=== PATIENT | male | born 1970 | race Caucasian/White ===

== ENCOUNTER 2022-07-30 16:02 | Inpatient (IN) ==
[2022-07-30] MEDS ORDERED: PHARMACY CONSULT - VANCOMYCIN XX SCH (17:00)
[2022-07-30] MEDS: NS 1,000 ML IV 1,000 ML IV SCH (17:46)
[2022-07-30 18:00] VITALS: BMI 31.9
[2022-07-30] MEDS ORDERED: VANCOMYCIN IV *PREMIX 1.25 G/250 ML BAG 1.25 G/250 ML PIGGYBACK IV ONE (18:00)
[2022-07-30 18:04] LABS: EOSINOPHILS # (AUTO) 0.2 x10^3/uL (0.0-0.2); EOSINOPHILS % (AUTO) 1.6 % (0.9-2.9); MONOCYTES # (AUTO) 0.7 x10^3/uL (0.3-0.8)
[2022-07-30 18:09] LABS: BASOPHILS % (AUTO) 0.3 % (0.2-1.0); HEMATOCRIT 39.5 % (42.0-54.0); LYMPHOCYTES # (AUTO) 2.8 X10^3/uL (1.3-2.9); LYMPHOCYTES % (AUTO) 25.2 % (21.0-51.0); MEAN CORPUSCULAR HEMOGLOBIN 30.3 pg (27.0-34.0); MEAN CORPUSCULAR HGB CONC 35.4 g/dL (33.0-35.0); MEAN CORPUSCULAR VOLUME 85.5 fL (80.0-100.0); MEAN PLATELET VOLUME 9.3 fL (7.4-11.0); MONOCYTES % (AUTO) 6.3 % (0.0-13.0); NEUTROPHILS # (AUTO) 7.4 x10^3/uL (2.2-4.8); NEUTROPHILS % (AUTO) 66.6 % (42.0-75.0); RED BLOOD COUNT 4.62 X10^6/uL (4.7-6.0); RED CELL DISTRIBUTION WIDTH 12.7 % (11.6-16.5)
[2022-07-30 18:12] LABS: ALANINE AMINOTRANSFERASE 16 Units/L (12-78); ALBUMIN 2.9 g/dL (3.4-5.0); ALKALINE PHOSPHATASE 92 Units/L (46-116); ASPARTATE AMINO TRANSFERASE 12 Units/L (15-37); BLOOD UREA NITROGEN 11 mg/dL (7-18); CALCIUM 9.1 mg/dL (8.5-10.1); CARBON DIOXIDE 31.2 mmol/L (21-32); CHLORIDE 99 mmol/L (98-107); COR NA(FOR HYPERGLY) 140 mmol/L (136-145); CREATININE 0.89 mg/dL (0.70-1.30); SODIUM 139 mmol/L (136-145); TOTAL PROTEIN 8.4 g/dL (6.4-8.2); eGFR NON BLACK RACES > 60 (>60)
[2022-07-30] MEDS ORDERED: NovoLIN R (or HumuLIN R) SC PRN (18:48)
[2022-07-30] MEDS: NORCO 10/325 TAB PO PRN (20:39)
--- NOTE | 2022-07-30 22:06 | DR.H&P ---
H&P History & Physical for Day of: H&P Date: 07/30/22 Chief Complaint Chief Complaint: Right foot ulcer Allergies Allergies Allergy/AdvReac Type Severity Reaction Status Date / Time codeine Allergy Verified 07/30/22 17:00 History of Present Illness History of Present Illness: Pt is a 51 year old male past medical history of DDD, DMT2, Hypertension, directly admitted from clinic due diabetic ulcer of right foot and cellulitis. Pt has been followed by wound care in [facility] and failed outpatient treatment. He was recommended to be admitted to their hospital, however patient refused and wanted to be admitted to [facility]. Pt has been having wound drainage at site and culture was obtained at clinic. MRI ordered to rule out osteomyelitis of right foot. Labs: Wbc 11, Hgb 14, Plt 309, Na 139, K 3.5, Creatinine 0.89, Glucose 124, CRP 17. Wound cultures pending. Will restart home medications. Order IVF NS@75ml/h, antibiotics: IV Vancomycin, SSI. Will continue to closely monitor and follow up labs/imaging. Past Medical History Past Medical History: Diabetes and Hypertension Past Surgical History Surgical History: Cholecystectomy Social History Alcohol Use: None Drug Use: None Medications Home Medications: codeine Allergy (Verified 07/30/22 17:00) CONTINUE taking the following medications glipizide 10 mg tablet, extended release 24 hr 1 tab PO QDAY 07/30/22 [History] hydrocodone 10 mg-acetaminophen 325 mg tablet 1 tab PO TID PRN 07/30/22 [History] insulin degludec 100 unit/mL (3 mL) subcutaneous pen (Tresiba FlexTouch U-100 insulin) 20 unit subcut BID 07/30/22 [History] levofloxacin 750 mg tablet 1 tab PO QDAY 07/30/22 [History] lisinopril 20 mg tablet 1 tab PO QDAY 07/30/22 [History] sulfamethoxazole 800 mg-trimethoprim 160 mg tablet 1 tab PO BID 07/30/22 [History] Labs Result Diagrams: 07/30/22 17:30 07/30/22 17:30 Labs: Laboratory WBC 11.0 X10^3/uL (3.6-10.0) H 07/30/22 17:30 RBC 4.62 X10^6/uL (4.7-6.0) L 07/30/22 17:30 Hgb 14.0 g/dL (13.5-18.0) 07/30/22 17: Hct 39.5 % (42.0-54.0) L 07/30/22 17: MCV 85.5 fL (80.0-100.0) 07/30/22 17: MCH 30.3 pg (27.0-34.0) 07/30/22 17: MCHC 35.4 g/dL (33.0-35.0) H 07/30/22 17: RDW 12.7 % (11.6-16.5) 07/30/22: Plt Count 309 X10^3/uL (150.0-450.0) 07/30/22: MPV 9.3 fL (7.4-11.0) 07/30/22 17: Neut % (Auto) 66.6 % (42.0-75.0) 07/30/22: Lymph % (Auto) 25.2 % (21.0-51.0) 07/30/22 17:30 [place] % (Auto) 6.3 % (0.0-13.0) 07/30/22 17: Eos % (Auto) 1.6 % (0.9-2.9) 07/30/22: Baso % (Auto) 0.3 % (0.2-1.0) 07/30/22 17:30 Neut # (Auto) 7.4 x10^3/uL (2.2-4.8) H 07/30/22: Lymph # (Auto) 2.8 X10^3/uL (1.3-2.9) 07/30/22 17:30 [place] # (Auto) 0.7 x10^3/uL (0.3-0.8) 07/30/22: Eos # (Auto) 0.2 x10^3/uL (0.0-0.2) 07/30/22 17: Baso # (Auto) 0.0 X10^3/uL (0.0-0.1) 07/30/22: Absolute Nucleated RBC 0.0 /100WBC 07/30/22 17:30 Sodium 139 mmol/L (136-145) 07/30/22 17:30 Corrected Sodium 140 mmol/L (136-145) 07/30/22 17:30 Potassium 3.5 mmol/L (3.5-5.1) 07/30/22 17:30 Chloride 99 mmol/L (98-107) 07/30/22 17:30 Carbon Dioxide 31.2 mmol/L (21-32) 07/30/22 17:30 BUN 11 mg/dL (7-18) 07/30/22 17:30 Creatinine 0.89 mg/dL (0.70-1.30) 07/30/22 17:30 Est GFR (MDRD) Af Amer > 60 (>60) 07/30/22 17:30 Est GFR (MDRD) Non-Af > 60 (>60) 07/30/22 17:30 Glucose 124 mg/dL (65-99) H 07/30/22 17:30 POC Glucose (mg/dL) 149 mg/dL (65-99) H 07/30/22 19:35 Calcium 9.1 mg/dL (8.5-10.1) 07/30/22 17:30 Corrected Calcium 10.0 mg/dL (8.5-10.1) 07/30/22 17:30 Total Bilirubin 0.30 mg/dL (0.2-1.0) 07/30/22 17:30 AST 12 Units/L (15-37) L 07/30/22 17:30 ALT 16 Units/L (12-78) 07/30/22 17:30 Alkaline Phosphatase 92 Units/L (46-116) 07/30/22 17:30 C-Reactive Protein 17.30 mg/L (0-3.0) H 07/30/22 17:30 Total Protein 8.4 g/dL (6.4-8.2) H 07/30/22 17:30 Albumin 2.9 g/dL (3.4-5.0) L 07/30/22 17:30 Globulin 5.5 g/dL (2.5-4.5) H 07/30/22 17:30 Albumin/Globulin Ratio 0.5 Ratio (1.1-2.1) L 07/30/22 17:30 Review of Systems Constitutional: No Symptoms Reported Eyes: No Symptoms Reported ENT: No Symptoms Reported Respiratory: No Symptoms Reported Cardiovascular: No Symptoms Reported Gastrointestinal: No Symptoms Reported Genitourinary: No Symptoms Reported Musculoskeletal: No Symptoms Reported Skin: Wound (diabetic ulcer with surround cellulitis right foot) Neurological: No Symptoms Reported Physical Exam Vital Signs: Temperature 98.3 F Pulse Rate [Left Brachial] 79 Respiratory Rate 18 Blood Pressure [Left Arm] 125/74 O2 Sat by Pulse Oximetry 97 Oriented: Normal Eyes: Normal Ear: Normal Nose: Normal Throat: Normal Respiratory: Clear Throughout Cardiovascular: Normal : Normal Auscultation: Bowel Sounds: Normal Palpation: Normal Tenderness: Normal Skin: Red (right foot ) Musculoskeletal: Right and Foot (diabetic ulcer ) Psychiatric: Normal Mood Description: Calm and Appropriate Affect: Normal Speech Pattern: Clear and Appropriate Assessment/Plan (1) Diabetic ulcer of right foot: Narrative Support Text: IV Vancomycin Wound culture pending MRI pending Status: Acute (2) Cellulitis: Status: Acute Review H&P Reviewed: Yes Patient was examined?: Yes
[2022-07-31] MEDS: GLUCOTROL XL 24-HR PO SCH (06:04)
[2022-07-31] MEDS: NS 1,000 ML IV 1,000 ML IV SCH ×3 (06:04→21:28)
[2022-07-31 06:10] LABS: BASOPHILS # (AUTO) 0.1 X10^3/uL (0.0-0.1); BASOPHILS % (AUTO) 1.5 % (0.2-1.0); EOSINOPHILS # (AUTO) 0.2 x10^3/uL (0.0-0.2); EOSINOPHILS % (AUTO) 2.2 % (0.9-2.9); HEMATOCRIT 36.5 % (42.0-54.0); HEMOGLOBIN 12.8 g/dL (13.5-18.0); LYMPHOCYTES # (AUTO) 2.6 X10^3/uL (1.3-2.9); LYMPHOCYTES % (AUTO) 26.9 % (21.0-51.0); MEAN CORPUSCULAR HGB CONC 34.9 g/dL (33.0-35.0); MEAN CORPUSCULAR VOLUME 85.8 fL (80.0-100.0); MEAN PLATELET VOLUME 9.3 fL (7.4-11.0); MONOCYTES # (AUTO) 0.7 x10^3/uL (0.3-0.8); MONOCYTES % (AUTO) 7.5 % (0.0-13.0); NEUTROPHILS # (AUTO) 5.9 x10^3/uL (2.2-4.8); NEUTROPHILS % (AUTO) 61.9 % (42.0-75.0); RED BLOOD COUNT 4.26 X10^6/uL (4.7-6.0); RED CELL DISTRIBUTION WIDTH 12.9 % (11.6-16.5); WHITE BLOOD COUNT 9.5 X10^3/uL (3.6-10.0)
[2022-07-31 06:29] LABS: ALANINE AMINOTRANSFERASE 17 Units/L (12-78); ALBUMIN 2.5 g/dL (3.4-5.0); ALKALINE PHOSPHATASE 78 Units/L (46-116); ASPARTATE AMINO TRANSFERASE 12 Units/L (15-37); BLOOD UREA NITROGEN 11 mg/dL (7-18); CALCIUM 8.6 mg/dL (8.5-10.1); CARBON DIOXIDE 30.6 mmol/L (21-32); CHLORIDE 104 mmol/L (98-107); COR CA(FOR HYPOALB) 9.8 mg/dL (8.5-10.1); COR NA(FOR HYPERGLY) 141 mmol/L (136-145); CREATININE 0.97 mg/dL (0.70-1.30); SODIUM 141 mmol/L (136-145); TOTAL PROTEIN 7.4 g/dL (6.4-8.2); eGFR NON BLACK RACES > 60 (>60)
[2022-07-31] MEDS ORDERED: MICRO K EXTEN CAP 10 MEQ PO PRN (06:40)
[2022-07-31] MEDS ORDERED: KLOR-CON PO PRN (06:40)
[2022-07-31] MEDS ORDERED: POTASSIUM CHLORIDE LIQ 20 MEQ UDC PO PRN (06:40)
[2022-07-31] MEDS ORDERED: K-RIDER 10 MEQ/NS 100 ML 10 MEQ/100 ML BAG IV PRN (06:40)
[2022-07-31] MEDS ORDERED: ZESTRIL TAB 20 MG ONE (09:31)
[2022-07-31] MEDS: K-DUR TAB 20 MEQ PO PRN (09:41)
[2022-07-31] MEDS: VANCOMYCIN IV *PREMIX 1.25 G/250 ML BAG 1.25 G/250 ML PIGGYBACK IV SCH ×2 (09:41→21:26)
[2022-07-31] MEDS: ZESTRIL TAB 20 MG PO SCH (09:42)
[2022-07-31] MEDS: LANTUS SC SCH ×2 (09:43→22:00)
[2022-07-31] MEDS: MAGNESIUM SULFATE 1 GRAM/100 mL PREMIX 1 G/100 ML BAG IV PRN ×2 (12:23→13:35)
--- NOTE | 2022-07-31 15:14 | PCM.PROG ---
Progress Note Progress Note for Day of Date of Exam: 07/31/22 Subjective Subjective: Patient seen at bedside, no overnight events. He states he has been doing ok. He is admitted for worsening right foot ulcers (dorsal and plantar) surface. He was seeing a specialist at Wound care and due to recent worsening, was advised to be admitted for IV antibiotics and further evaluation. Patient reports having this diabetic ulcer for a long time. He states it recently started draining a lot. He was started on IV Vancomycin, MRI pending. Labs reviewed Wound Cs: Gram (-) rods and coag + staff Plan: Follow MRI results, continue IV Vanc, add IV Zosyn. Follow wound Cx. Dr De Jesus consulted for wound care. No surgical intervention needed at this time. Continue current home medications. Monitor AM labs/imaging. Past Medical Family Social History Allergies: Allergies codeine Allergy (Verified 07/30/22 17:00) Vital Signs and I&O's Vital Signs: Temperature 97.8 F Pulse Rate [Left Brachial] 68 Respiratory Rate 20 Blood Pressure [Left Arm] 120/73 O2 Sat by Pulse Oximetry 96 Intake and Output: Intake & Output 07/28/22 07/29/22 07/30/22 07/31/22 23:59 23:59 23:59 23:59 Intake Total 719 / 719 1615 / 1615 Balance 719 / 719 1615 / 1615 Physical Exam Oriented: Normal Eyes: Normal Ear: Normal Nose: Normal Throat: Normal Cardiovascular: Normal : Normal Auscultation: Bowel Sounds: Normal Tenderness: Normal Skin: Red (right foot ) Musculoskeletal: Right and Foot (diabetic ulcer with purulent drainage, on plantar and dorsal surface, surrounding erythema ) Psychiatric: Normal Mood Description: Calm and Appropriate Affect: Normal Speech Pattern: Clear and Appropriate Laboratory and Diagnostics Result Diagrams: 07/31/22 05:33 07/31/22 05:33 Labs: Laboratory WBC 9.5 X10^3/uL (3.6-10.0) 07/31/22 05:33 RBC 4.26 X10^6/uL (4.7-6.0) L 07/31/22 05:33 Hgb 12.8 g/dL (13.5-18.0) L 07/31/22 05:33 Hct 36.5 % (42.0-54.0) L 07/31/22 05:33 MCV 85.8 fL (80.0-100.0) 07/31/22 05:33 MCH 30.0 pg (27.0-34.0) 07/31/22 05:33 MCHC 34.9 g/dL (33.0-35.0) 07/31/22 05:33 RDW 12.9 % (11.6-16.5) 07/31/22 05:33 Plt Count 296 X10^3/uL (150.0-450.0) 07/31/22 05:33 MPV 9.3 fL (7.4-11.0) 07/31/22 05:33 Neut % (Auto) 61.9 % (42.0-75.0) 07/31/22 05:33 Lymph % (Auto) 26.9 % (21.0-51.0) 07/31/22 05:33 [place] % (Auto) 7.5 % (0.0-13.0) 07/31/22 05:33 Eos % (Auto) 2.2 % (0.9-2.9) 07/31/22 05:33 Baso % (Auto) 1.5 % (0.2-1.0) H 07/31/22 05:33 Neut # (Auto) 5.9 x10^3/uL (2.2-4.8) H 07/31/22 05:33 Lymph # (Auto) 2.6 X10^3/uL (1.3-2.9) 07/31/22 05:33 [place] # (Auto) 0.7 x10^3/uL (0.3-0.8) 07/31/22 05:33 Eos # (Auto) 0.2 x10^3/uL (0.0-0.2) 07/31/22 05:33 Baso # (Auto) 0.1 X10^3/uL (0.0-0.1) 07/31/22 05:33 Absolute Nucleated RBC 0.0 /100WBC 07/31/22 05:33 Sodium 141 mmol/L (136-145) 07/31/22 05:33 Corrected Sodium 141 mmol/L (136-145) 07/31/22 05:33 Potassium 3.4 mmol/L (3.5-5.1) L 07/31/22 05:33 Chloride 104 mmol/L (98-107) 07/31/22 05:33 Carbon Dioxide 30.6 mmol/L (21-32) 07/31/22 05:33 BUN 11 mg/dL (7-18) 07/31/22 05:33 Creatinine 0.97 mg/dL (0.70-1.30) 07/31/22 05:33 Est GFR (MDRD) Af Amer > 60 (>60) 07/31/22 05:33 Est GFR (MDRD) Non-Af > 60 (>60) 07/31/22 05:33 Glucose 118 mg/dL (65-99) H 07/31/22 05:33 POC Glucose (mg/dL) 77 mg/dL (65-99) 07/31/22 11:26 Calcium 8.6 mg/dL (8.5-10.1) 07/31/22 05:33 Corrected Calcium 9.8 mg/dL (8.5-10.1) 07/31/22 05:33 Magnesium 1.8 mg/dL (2.0-2.9) L 07/31/22 05:33 Total Bilirubin 0.30 mg/dL (0.2-1.0) 07/31/22 05:33 AST 12 Units/L (15-37) L 07/31/22 05:33 ALT 17 Units/L (12-78) 07/31/22 05:33 Alkaline Phosphatase 78 Units/L (46-116) 07/31/22 05:33 C-Reactive Protein 17.30 mg/L (0-3.0) H 07/30/22 17:30 Total Protein 7.4 g/dL (6.4-8.2) 07/31/22 05:33 Albumin 2.5 g/dL (3.4-5.0) L 07/31/22 05:33 Globulin 4.9 g/dL (2.5-4.5) H 07/31/22 05:33 Albumin/Globulin Ratio 0.5 Ratio (1.1-2.1) L 07/31/22 05:33 Plan (1) Diabetic ulcer of right foot: Status: Acute (2) Cellulitis: Status: Acute (3) Diabetes: Status: Acute (4) HTN (hypertension): Status: Acute
[2022-07-31] MEDS: NORCO 10/325 TAB PO PRN (15:19)
[2022-07-31] MEDS: ZOSYN VIAL 3.375 GRAMS 3.375 G in NS 100 ML IV 100 ML IV SCH ×3 (16:01→21:27)
[2022-07-31] MEDS: SNACK - Diabetic Appropriate PO SCH (21:27)
[2022-08-01] MEDS: ZOSYN VIAL 3.375 GRAMS 3.375 G in NS 100 ML IV 100 ML IV SCH (05:14)
[2022-08-01 06:03] LABS: BASOPHILS # (AUTO) 0.1 X10^3/uL (0.0-0.1); BASOPHILS % (AUTO) 1.1 % (0.2-1.0); EOSINOPHILS # (AUTO) 0.2 x10^3/uL (0.0-0.2); EOSINOPHILS % (AUTO) 1.8 % (0.9-2.9); HEMATOCRIT 36.8 % (42.0-54.0); HEMOGLOBIN 12.7 g/dL (13.5-18.0); LYMPHOCYTES # (AUTO) 1.8 X10^3/uL (1.3-2.9); LYMPHOCYTES % (AUTO) 16.9 % (21.0-51.0); MEAN CORPUSCULAR HEMOGLOBIN 29.8 pg (27.0-34.0); MEAN CORPUSCULAR HGB CONC 34.7 g/dL (33.0-35.0); MEAN CORPUSCULAR VOLUME 85.9 fL (80.0-100.0); MEAN PLATELET VOLUME 9.2 fL (7.4-11.0); MONOCYTES # (AUTO) 0.7 x10^3/uL (0.3-0.8); MONOCYTES % (AUTO) 6.1 % (0.0-13.0); NEUTROPHILS # (AUTO) 8.1 x10^3/uL (2.2-4.8); NEUTROPHILS % (AUTO) 74.1 % (42.0-75.0); RED BLOOD COUNT 4.28 X10^6/uL (4.7-6.0); RED CELL DISTRIBUTION WIDTH 12.9 % (11.6-16.5); WHITE BLOOD COUNT 10.9 X10^3/uL (3.6-10.0)
[2022-08-01] MEDS: GLUCOTROL XL 24-HR PO SCH (06:23)
[2022-08-01 06:34] LABS: ALANINE AMINOTRANSFERASE 17 Units/L (12-78); ALBUMIN 2.4 g/dL (3.4-5.0); ALKALINE PHOSPHATASE 74 Units/L (46-116); ASPARTATE AMINO TRANSFERASE 18 Units/L (15-37); BLOOD UREA NITROGEN 8 mg/dL (7-18); CALCIUM 8.4 mg/dL (8.5-10.1); CARBON DIOXIDE 28.3 mmol/L (21-32); CHLORIDE 105 mmol/L (98-107); COR CA(FOR HYPOALB) 9.7 mg/dL (8.5-10.1); CREATININE 0.96 mg/dL (0.70-1.30); SODIUM 140 mmol/L (136-145); TOTAL PROTEIN 7.1 g/dL (6.4-8.2); eGFR NON BLACK RACES > 60 (>60)
--- NOTE | 2022-08-01 08:31 | MRI ---
HISTORYWOUND ON RIGHT FOOTSTUDYMRI right foot without and with IV contrastCOMPARISONMRI 06/10/2022TECHNIQUEMRI of the right footwithout and with IV contrast is performed using standard sequences in multiple planes. 20 cc MultiHance IV contrast.FINDINGSMotion limits evaluation. There is enhancing edema in the foot and base of the toes that is probably cellulitis. Cellulitis changes appear more prominent than prior study. Nonenhancing necrotic tissue is seen dorsally near the level of the 3rd and 4th MTP joints. There is associated skin ulceration. This is new since prior study. No soft tissue abscess is seen.There is edema in the distal head and shaft of the 3rd metatarsal and in the distal head of the 4th metatarsal. There is likely mild enhancement of this edema suggesting osteomyelitis. Similarly, there is probable enhancing edema in the 3rd and 4th proximal phalanges suggesting osteomyelitis. No suggestion of bone destruction is seen. No fracture or dislocation is seen. Probable mild skin ulceration is seen in the plantar aspect of the mid forefoot, also.IMPRESSIONCellulitis is seen in the foot, greatest in the dorsum of the forefoot. There is a necrotic area with ulceration dorsally near the level of the 3rd and 4th MTP joints. This area of gangrenous changes measures approximately 1.6 x 1.3 x 2.3 cm. No abscess is seen.Probable changes of osteomyelitis are seen in the 3rd and 4th proximal phalanges and in the 3rd and 4th metatarsals as described above.Electronically signed by: Smooth Palacios (Aug 01, 2022 08:29:33)
[2022-08-01 09:20] LABS: VANCOMYCIN,TROUGH 9.3 ug/mL (15-20)
[2022-08-01] MEDS ORDERED: ZESTRIL TAB 20 MG ONE (09:27)
[2022-08-01] MEDS: VANCOMYCIN IV *PREMIX 1.25 G/250 ML BAG 1.25 G/250 ML PIGGYBACK IV SCH ×2 (09:49→20:31)
[2022-08-01] MEDS: ZESTRIL TAB 20 MG PO SCH (09:49)
[2022-08-01] MEDS: LANTUS SC SCH ×2 (09:50→20:32)
[2022-08-01] MEDS: ROCEPHIN VIAL 1 GRAM 1 G in NS 100 ML IV 100 ML IV SCH (12:17)
[2022-08-01] MEDS: NORCO 10/325 TAB PO PRN ×2 (12:27→20:44)
--- NOTE | 2022-08-01 14:48 | PCM.PROG ---
Progress Note Progress Note for Day of Date of Exam: 08/01/22 Subjective Subjective: Patient seen at bedside, no overnight events. He states he has been doing ok. He is admitted for worsening right foot ulcers (dorsal and plantar) surface. He was seeing a specialist at Wound care and due to recent worsening, was advised to be admitted for IV antibiotics and further evaluation. Patient reports having this diabetic ulcer for a long time. He states it recently started draining a lot. He on IV vancomycin and IV Zosyn at this time. Radiology: MRI of patient's right foot shows osteomyelitis and gangrenous changes. Wound Cs: MRSA and Providencia stuarti Plan: Continue IV Vanc, discontinue IV Zosyn and changed to IV Rocephin 1 g daily since it has a better ADRIANA. Dr De Jesus consulted for wound care. No surgical intervention needed at this time. Continue current home medications. Monitor AM labs/imaging. I will schedule the patient have a PICC line placed today if it has not been done already and add ESR and CRP today and repeat again tomorrow. Past Medical Family Social History Allergies: Allergies codeine Allergy (Verified 07/30/22 17:00) Vital Signs and I&O's Vital Signs: Temperature 97.5 F Pulse Rate [Left Brachial] 69 Respiratory Rate 18 Blood Pressure [Left Arm] 119/72 O2 Sat by Pulse Oximetry 97 Intake and Output: Intake & Output 07/30/22 07/31/22 08/01/22 08/02/22 11:59 11:59 11:59 11:59 Intake Total 1494 / 1494 2590 / 2590 Balance 1494 / 1494 2590 / 2590 Physical Exam Oriented: Normal Eyes: Normal Ear: Normal Nose: Normal Throat: Normal Cardiovascular: Normal : Normal Auscultation: Bowel Sounds: Normal Tenderness: Normal Skin: Red (right foot ) Musculoskeletal: Right and Foot (diabetic ulcer with purulent drainage, on plantar and dorsal surface, surrounding erythema ) Psychiatric: Normal Mood Description: Calm and Appropriate Affect: Normal Speech Pattern: Clear and Appropriate Laboratory and Diagnostics Result Diagrams: 08/01/22 05:30 08/01/22 08:43 Labs: Laboratory WBC 10.9 X10^3/uL (3.6-10.0) H 08/01/22 05:30 RBC 4.28 X10^6/uL (4.7-6.0) L 08/01/22 05:30 Hgb 12.7 g/dL (13.5-18.0) L 08/01/22 05:30 Hct 36.8 % (42.0-54.0) L 08/01/22 05:30 MCV 85.9 fL (80.0-100.0) 08/01/22 05:30 MCH 29.8 pg (27.0-34.0) 08/01/22 05:30 MCHC 34.7 g/dL (33.0-35.0) 08/01/22 05:30 RDW 12.9 % (11.6-16.5) 08/01/22 05:30 Plt Count 306 X10^3/uL (150.0-450.0) 08/01/22 05:30 MPV 9.2 fL (7.4-11.0) 08/01/22 05:30 Neut % (Auto) 74.1 % (42.0-75.0) 08/01/22 05:30 Lymph % (Auto) 16.9 % (21.0-51.0) L 08/01/22 05:30 [place] % (Auto) 6.1 % (0.0-13.0) 08/01/22 05:30 Eos % (Auto) 1.8 % (0.9-2.9) 08/01/22 05:30 Baso % (Auto) 1.1 % (0.2-1.0) H 08/01/22 05:30 Neut # (Auto) 8.1 x10^3/uL (2.2-4.8) H 08/01/22 05:30 Lymph # (Auto) 1.8 X10^3/uL (1.3-2.9) 08/01/22 05:30 [place] # (Auto) 0.7 x10^3/uL (0.3-0.8) 08/01/22 05:30 Eos # (Auto) 0.2 x10^3/uL (0.0-0.2) 08/01/22 05:30 Baso # (Auto) 0.1 X10^3/uL (0.0-0.1) 08/01/22 05:30 Absolute Nucleated RBC 0.0 /100WBC 08/01/22 05:30 ESR 68 MM/HOUR (0-15) H 08/01/22 05:30 Sodium 140 mmol/L (136-145) 08/01/22 05:30 Corrected Sodium TNP 08/01/22 05:30 Potassium 3.7 mmol/L (3.5-5.1) 08/01/22 05:30 Chloride 105 mmol/L (98-107) 08/01/22 05:30 Carbon Dioxide 28.3 mmol/L (21-32) 08/01/22 05:30 BUN 8 mg/dL (7-18) 08/01/22 05:30 Creatinine 1.00 mg/dL (0.70-1.30) 08/01/22 08:43 Est GFR (MDRD) Af Amer > 60 (>60) 08/01/22 05:30 Est GFR (MDRD) Non-Af > 60 (>60) 08/01/22 05:30 Glucose 89 mg/dL (65-99) 08/01/22 05:30 POC Glucose (mg/dL) 105 mg/dL (65-99) H 08/01/22 12:19 Calcium 8.4 mg/dL (8.5-10.1) L 08/01/22 05:30 Corrected Calcium 9.7 mg/dL (8.5-10.1) 08/01/22 05:30 Magnesium 1.8 mg/dL (2.0-2.9) L 07/31/22 05:33 Total Bilirubin 0.20 mg/dL (0.2-1.0) 08/01/22 05:30 AST 18 Units/L (15-37) 08/01/22 05:30 ALT 17 Units/L (12-78) 08/01/22 05:30 Alkaline Phosphatase 74 Units/L (46-116) 08/01/22 05:30 C-Reactive Protein 3.30 mg/L (0-3.0) H 08/01/22 05:30 Total Protein 7.1 g/dL (6.4-8.2) 08/01/22 05:30 Albumin 2.4 g/dL (3.4-5.0) L 08/01/22 05:30 Globulin 4.7 g/dL (2.5-4.5) H 08/01/22 05:30 Albumin/Globulin Ratio 0.5 Ratio (1.1-2.1) L 08/01/22 05:30 Vancomycin Trough 9.3 ug/mL (15-20) L 08/01/22 08:43 Plan (1) Diabetic ulcer of right foot: Status: Acute (2) Cellulitis: Status: Acute (3) Diabetes: Status: Acute (4) HTN (hypertension): Status: Acute
--- NOTE | 2022-08-01 16:09 | RAD ---
HISTORYPICC LINE PLACEMENTSTUDYCHEST x-ray, 1 VIEWCOMPARISONX-ray 12/18/2021FINDINGSLeft-sided PICC line terminates in the region of the mid SVC. Heart is probably normal in size. There is slight crowding of the lung markings with slightly less than optimal inspiration. No pneumothorax, focal trade, or pleural effusion is seen.IMPRESSIONPICC line terminates in the region of the mid SVC.Electronically signed by: Smooth Palacios (Aug 01, 2022 16:07:38)
--- NOTE | 2022-08-01 16:41 | DR.UPDATE ---
H&P Update Prescription drug monitoring program results: PDMP reviewed and no concerns identified H&P Reviewed: Yes Any changes to H&P?: No Patient was examined?: Yes Procedures (ALL) - Central Line Placement PCM.CLCO: written consent Time out performed: Yes Patient placed pm monitor/pulse ox: Yes prep: mask, gown, gloves, other Centrial line prep: chlorhexidine scrub, sterile drapes applied Local anesthsia used: lidocane 1% Ultrasound used for placement: Yes (left basilic and brachial id'd via u/s) Central line lumen ininserted: double (5.5 arrowpicc) Post procedure: good blood return, all ports aspirated, flushed,capped, sterile dressing applied Post procedure xray: tip oc catheter in good position (mid svc per cxr), no pneumothorax seen Patient tolerated procedure: Yes Complications: none (unable to thread catheter thru basilic. easily threaded to 43cm in brachial)
--- NOTE | 2022-08-01 17:41 | DR.PROGNOT ---
Hospital Progress Notes - Progress Note for Day of: Progress Note Date: 08/01/22 - Chief Complaint Chief Complaint: slow improvement , minimal pain .( neuropathy ). C&S showed MRSA . mild drainage . ESR 68. WBC 10.9... BS 144 - Past Medical Family Social History Past Med/Fam/Surg Hx: No changes since H&P Allergies: Allergies codeine Allergy (Verified 07/30/22 17:00) - Review Of Systems ROS: No change since H&P - Vital Signs Vital Signs: Temperature 97.6 F Pulse Rate [Left Brachial] 76 Respiratory Rate 19 Blood Pressure [Left Arm] 148/75 O2 Sat by Pulse Oximetry 98 - Physical Exam Oriented: Normal Eyes: Normal Ear: Normal Nose: Normal Throat: Normal Cardiovascular: Normal : Normal GI:Auscultation: Normal GI:Palpation: Normal GI: Tenderness: Normal Skin: Other (draining sinuse from the foot with moderate erythema and edema Rt foot ) Musculoskeletal: Right, Foot (diabetic ulcer with purulent drainage, on plantar and dorsal surface, surrounding erythema) Psychiatric: Normal Mood Description: Calm, Appropriate Affect: Normal Speech Pattern: Clear, Appropriate - Laboratory and Diagnostics Result Diagrams: 08/01/22 05:30 08/01/22 08:43 Labs: Laboratory WBC 10.9 X10^3/uL (3.6-10.0) H 08/01/22 05:30 RBC 4.28 X10^6/uL (4.7-6.0) L 08/01/22 05:30 Hgb 12.7 g/dL (13.5-18.0) L 08/01/22 05:30 Hct 36.8 % (42.0-54.0) L 08/01/22 05:30 MCV 85.9 fL (80.0-100.0) 08/01/22 05:30 MCH 29.8 pg (27.0-34.0) 08/01/22 05:30 MCHC 34.7 g/dL (33.0-35.0) 08/01/22 05:30 RDW 12.9 % (11.6-16.5) 08/01/22 05:30 Plt Count 306 X10^3/uL (150.0-450.0) 08/01/22 05:30 MPV 9.2 fL (7.4-11.0) 08/01/22 05:30 Neut % (Auto) 74.1 % (42.0-75.0) 08/01/22 05:30 Lymph % (Auto) 16.9 % (21.0-51.0) L 08/01/22 05:30 [place] % (Auto) 6.1 % (0.0-13.0) 08/01/22 05:30 Eos % (Auto) 1.8 % (0.9-2.9) 08/01/22 05:30 Baso % (Auto) 1.1 % (0.2-1.0) H 08/01/22 05:30 Neut # (Auto) 8.1 x10^3/uL (2.2-4.8) H 08/01/22 05:30 Lymph # (Auto) 1.8 X10^3/uL (1.3-2.9) 08/01/22 05:30 [place] # (Auto) 0.7 x10^3/uL (0.3-0.8) 08/01/22 05:30 Eos # (Auto) 0.2 x10^3/uL (0.0-0.2) 08/01/22 05:30 Baso # (Auto) 0.1 X10^3/uL (0.0-0.1) 08/01/22 05:30 Absolute Nucleated RBC 0.0 /100WBC 08/01/22 05:30 ESR 68 MM/HOUR (0-15) H 08/01/22 05:30 Sodium 140 mmol/L (136-145) 08/01/22 05:30 Corrected Sodium TNP 08/01/22 05:30 Potassium 3.7 mmol/L (3.5-5.1) 08/01/22 05:30 Chloride 105 mmol/L (98-107) 08/01/22 05:30 Carbon Dioxide 28.3 mmol/L (21-32) 08/01/22 05:30 BUN 8 mg/dL (7-18) 08/01/22 05:30 Creatinine 1.00 mg/dL (0.70-1.30) 08/01/22 08:43 Est GFR (MDRD) Af Amer > 60 (>60) 08/01/22 05:30 Est GFR (MDRD) Non-Af > 60 (>60) 08/01/22 05:30 Glucose 89 mg/dL (65-99) 08/01/22 05:30 POC Glucose (mg/dL) 144 mg/dL (65-99) H 08/01/22 16:23 Calcium 8.4 mg/dL (8.5-10.1) L 08/01/22 05:30 Corrected Calcium 9.7 mg/dL (8.5-10.1) 08/01/22 05:30 Magnesium 1.8 mg/dL (2.0-2.9) L 07/31/22 05:33 Total Bilirubin 0.20 mg/dL (0.2-1.0) 08/01/22 05:30 AST 18 Units/L (15-37) 08/01/22 05:30 ALT 17 Units/L (12-78) 08/01/22 05:30 Alkaline Phosphatase 74 Units/L (46-116) 08/01/22 05:30 C-Reactive Protein 3.30 mg/L (0-3.0) H 08/01/22 05:30 Total Protein 7.1 g/dL (6.4-8.2) 08/01/22 05:30 Albumin 2.4 g/dL (3.4-5.0) L 08/01/22 05:30 Globulin 4.7 g/dL (2.5-4.5) H 08/01/22 05:30 Albumin/Globulin Ratio 0.5 Ratio (1.1-2.1) L 08/01/22 05:30 Vancomycin Trough 9.3 ug/mL (15-20) L 08/01/22 08:43 - Assessment and Plan 1: diabetic Rt foor ulcer . osteomyelitis RT foot . DM . on IV Vancomycine for 6 weeks via PIC line . to follow in the office in 10 days .
[2022-08-01] MEDS ORDERED: PHARMACY COMMENT IV NR (20:30)
[2022-08-01] MEDS: SNACK - Diabetic Appropriate PO SCH (20:35)
[2022-08-02] MEDS: NS 1,000 ML IV 1,000 ML IV SCH ×2 (01:00→17:59)
[2022-08-02 06:03] LABS: BASOPHILS # (AUTO) 0.1 X10^3/uL (0.0-0.1); BASOPHILS % (AUTO) 1.2 % (0.2-1.0); EOSINOPHILS # (AUTO) 0.2 x10^3/uL (0.0-0.2); EOSINOPHILS % (AUTO) 1.6 % (0.9-2.9); HEMATOCRIT 36.9 % (42.0-54.0); HEMOGLOBIN 12.8 g/dL (13.5-18.0); LYMPHOCYTES # (AUTO) 2.6 X10^3/uL (1.3-2.9); LYMPHOCYTES % (AUTO) 26.1 % (21.0-51.0); MEAN CORPUSCULAR HEMOGLOBIN 29.7 pg (27.0-34.0); MEAN CORPUSCULAR HGB CONC 34.6 g/dL (33.0-35.0); MEAN CORPUSCULAR VOLUME 85.7 fL (80.0-100.0); MEAN PLATELET VOLUME 9.1 fL (7.4-11.0); MONOCYTES # (AUTO) 0.6 x10^3/uL (0.3-0.8); MONOCYTES % (AUTO) 6.4 % (0.0-13.0); NEUTROPHILS # (AUTO) 6.4 x10^3/uL (2.2-4.8); NEUTROPHILS % (AUTO) 64.7 % (42.0-75.0); RED BLOOD COUNT 4.31 X10^6/uL (4.7-6.0); RED CELL DISTRIBUTION WIDTH 13.4 % (11.6-16.5); WHITE BLOOD COUNT 9.9 X10^3/uL (3.6-10.0)
[2022-08-02 06:09] LABS: ERYTHROCYTE SEDIMENTATION RATE 64 MM/HOUR (0-15)
[2022-08-02 06:12] LABS: ALANINE AMINOTRANSFERASE 20 Units/L (12-78); ALBUMIN 2.5 g/dL (3.4-5.0); ALKALINE PHOSPHATASE 73 Units/L (46-116); ASPARTATE AMINO TRANSFERASE 15 Units/L (15-37); BLOOD UREA NITROGEN 7 mg/dL (7-18); CALCIUM 8.3 mg/dL (8.5-10.1); CARBON DIOXIDE 29.3 mmol/L (21-32); CHLORIDE 106 mmol/L (98-107); COR CA(FOR HYPOALB) 9.5 mg/dL (8.5-10.1); CREATININE 0.85 mg/dL (0.70-1.30); SODIUM 143 mmol/L (136-145); eGFR NON BLACK RACES > 60 (>60)
[2022-08-02] MEDS ORDERED: ZESTRIL TAB 20 MG ONE (08:30)
[2022-08-02] MEDS: GLUCOTROL XL 24-HR PO SCH (09:27)
[2022-08-02] MEDS: K-DUR TAB 20 MEQ PO PRN (09:27)
[2022-08-02] MEDS: ZESTRIL TAB 20 MG PO SCH (09:28)
[2022-08-02] MEDS: ROCEPHIN VIAL 1 GRAM 1 G in NS 100 ML IV 100 ML IV SCH (09:28)
[2022-08-02] MEDS: VANCOMYCIN IV *PREMIX 1.5 G/300 ML BAG 1.5 G/300 ML PIGGYBACK IV SCH ×2 (10:09→17:05)
[2022-08-02] MEDS: LANTUS SC SCH (10:53)
[2022-08-02] MEDS: MAGNESIUM SULFATE 1 GRAM/100 mL PREMIX 1 G/100 ML BAG IV PRN ×2 (13:39→15:13)
[2022-08-02] MEDS: NORCO 10/325 TAB PO PRN (15:52)
[2022-08-02 16:18] VITALS: BP 165/70
[2022-08-03] MEDS ORDERED: PHARMACY COMMENT IV NR (20:30)
== END 2022-08-02 19:35 | disposition home health service (06) | DRG 603 ==
LOC: MED/SURG
PROVIDERS: ADMIT Family Medicine; ATTEND Family Medicine
DX: E11.65 Type 2 diabetes mellitus with hyperglycemia; Z79.4 Long term (current) use of insulin; M86.171 Other acute osteomyelitis, right ankle and foot; B95.62 Methicillin resistant Staphylococcus aureus infection as the cause of diseases classified elsewhere; I10 Essential (primary) hypertension; B96.89 Other specified bacterial agents as the cause of diseases classified elsewhere; I87.2 Venous insufficiency (chronic) (peripheral); L97.519 Non-pressure chronic ulcer of other part of right foot with unspecified severity; E11.621 Type 2 diabetes mellitus with foot ulcer; R79.82 Elevated C-reactive protein (CRP); L03.115 Cellulitis of right lower limb; R70.0 Elevated erythrocyte sedimentation rate; I73.89 Other specified peripheral vascular diseases

== ENCOUNTER 2024-08-12 17:05 | Observation (INO) ==
[2024-08-12] MEDS: PHARMACY CONSULT - VANCOMYCIN XX SCH (18:00)
[2024-08-12 18:08] LABS: BASOPHILS # (AUTO) 0.1 X10^3/uL (0.0-0.1); BASOPHILS % (AUTO) 0.5 % (0.2-1.0); EOSINOPHILS # (AUTO) 0.2 x10^3/uL (0.0-0.2); EOSINOPHILS % (AUTO) 1.1 % (0.9-2.9); HEMATOCRIT 40.4 % (42.0-54.0); HEMOGLOBIN 14.3 g/dL (13.5-18.0); LYMPHOCYTES # (AUTO) 1.8 X10^3/uL (1.3-2.9); LYMPHOCYTES % (AUTO) 10.4 % (21.0-51.0); MEAN CORPUSCULAR HEMOGLOBIN 31.9 pg (27.0-34.0); MEAN CORPUSCULAR HGB CONC 35.3 g/dL (33.0-35.0); MEAN CORPUSCULAR VOLUME 90.4 fL (80.0-100.0); MEAN PLATELET VOLUME 9.6 fL (7.4-11.0); MONOCYTES # (AUTO) 1.2 x10^3/uL (0.3-0.8); MONOCYTES % (AUTO) 7.2 % (0.0-13.0); NEUTROPHILS # (AUTO) 13.7 x10^3/uL (2.2-4.8); NEUTROPHILS % (AUTO) 80.8 % (42.0-75.0); PLATELET COUNT 228 X10^3/uL (150.0-450.0); RED BLOOD COUNT 4.47 X10^6/uL (4.7-6.0); RED CELL DISTRIBUTION WIDTH 13.2 % (11.6-16.5); WHITE BLOOD COUNT 16.9 X10^3/uL (3.6-10.0)
[2024-08-12 18:17] LABS: ALANINE AMINOTRANSFERASE 17 Units/L (12-78); ALBUMIN 3.2 g/dL (3.4-5.0); ALKALINE PHOSPHATASE 117 Units/L (46-116); ASPARTATE AMINO TRANSFERASE 15 Units/L (15-37); BLOOD UREA NITROGEN 11 mg/dL (7-18); CALCIUM 9.2 mg/dL (8.5-10.1); CARBON DIOXIDE 30.1 mmol/L (21-32); CHLORIDE 97 mmol/L (98-107); COR CA(FOR HYPOALB) 9.8 mg/dL (8.5-10.1); COR NA(FOR HYPERGLY) 140 mmol/L (136-145); GLUCOSE 211 mg/dL (65-99); POTASSIUM 3.2 mmol/L (3.5-5.1); SODIUM 137 mmol/L (136-145); TOTAL PROTEIN 8.9 g/dL (6.4-8.2); eGFR NON BLACK RACES > 60 (>60)
[2024-08-12 18:47] VITALS: BMI 33.1
[2024-08-12] MEDS: SNACK - Diabetic Appropriate PO SCH (20:17)
[2024-08-12] MEDS: VANCOMYCIN IV *PREMIX 1 G/200 ML BAG 1 G/200 ML PIGGYBACK IV SCH (20:23)
[2024-08-12] MEDS: NovoLIN R (or HumuLIN R) SUBCUT PRN (20:23)
[2024-08-12] MEDS: SEROquel TAB 25 mg PO SCH (21:22)
[2024-08-12] MEDS: LYRICA CAP 75 mg PO SCH (21:22)
[2024-08-12] MEDS: GLUCOTROL XL 24-HR PO SCH (21:22)
[2024-08-12] MEDS: LIPITOR TAB 40 MG PO SCH (21:22)
[2024-08-13 05:26] LABS: BASOPHILS # (AUTO) 0.1 X10^3/uL (0.0-0.1); BASOPHILS % (AUTO) 0.6 % (0.2-1.0); EOSINOPHILS # (AUTO) 0.1 x10^3/uL (0.0-0.2); EOSINOPHILS % (AUTO) 0.7 % (0.9-2.9); HEMATOCRIT 35.4 % (42.0-54.0); HEMOGLOBIN 12.5 g/dL (13.5-18.0); LYMPHOCYTES % (AUTO) 14.5 % (21.0-51.0); MEAN CORPUSCULAR HEMOGLOBIN 31.8 pg (27.0-34.0); MEAN CORPUSCULAR HGB CONC 35.3 g/dL (33.0-35.0); MEAN CORPUSCULAR VOLUME 90.2 fL (80.0-100.0); MEAN PLATELET VOLUME 9.2 fL (7.4-11.0); MONOCYTES # (AUTO) 1.1 x10^3/uL (0.3-0.8); MONOCYTES % (AUTO) 7.9 % (0.0-13.0); NEUTROPHILS # (AUTO) 10.5 x10^3/uL (2.2-4.8); NEUTROPHILS % (AUTO) 76.3 % (42.0-75.0); PLATELET COUNT 204 X10^3/uL (150.0-450.0); RED BLOOD COUNT 3.92 X10^6/uL (4.7-6.0); RED CELL DISTRIBUTION WIDTH 13.3 % (11.6-16.5); WHITE BLOOD COUNT 13.7 X10^3/uL (3.6-10.0)
[2024-08-13 05:38] LABS: ALANINE AMINOTRANSFERASE 17 Units/L (12-78); ALBUMIN 2.6 g/dL (3.4-5.0); ALKALINE PHOSPHATASE 94 Units/L (46-116); ASPARTATE AMINO TRANSFERASE 17 Units/L (15-37); BLOOD UREA NITROGEN 11 mg/dL (7-18); CALCIUM 8.9 mg/dL (8.5-10.1); CARBON DIOXIDE 30.5 mmol/L (21-32); CHLORIDE 101 mmol/L (98-107); CREATININE 0.93 mg/dL (0.70-1.30); GLUCOSE 85 mg/dL (65-99); POTASSIUM 3.3 mmol/L (3.5-5.1); SODIUM 140 mmol/L (136-145); TOTAL PROTEIN 7.5 g/dL (6.4-8.2); eGFR NON BLACK RACES > 60 (>60)
[2024-08-13 06:02] LABS: HEMOGLOBIN A1C 10.2 %
[2024-08-13] MEDS ORDERED: CONSULT PHARMACY - POTASSIUM & MAGNESIUM XX SCH (08:00)
[2024-08-13] MEDS: NORVASC TAB 5 MG PO SCH (08:53)
[2024-08-13] MEDS: MAG-OX TAB PO SCH (08:53)
[2024-08-13] MEDS: K-DUR TAB 20 MEQ PO SCH (08:54)
[2024-08-13] MEDS: ZESTRIL TAB 40 MG PO SCH (08:54)
[2024-08-13] MEDS: ZOSYN VIAL 3.375 GRAMS 3.375 G in NS 100 ML IV 100 ML IV ONE (09:41)
[2024-08-13] MEDS: ZOSYN VIAL 3.375 GRAMS 3.375 G in NS 100 ML IV 100 ML IV SCH (13:22)
[2024-08-13] MEDS: NS IRRIGATION* 500 ML IR ONE ×2 (14:30→23:08)
[2024-08-13] MEDS: BACTROBAN TOPICAL OINT TOP ONE (14:30)
[2024-08-13] MEDS: HYDROGEN PEROXIDE 3% EXT PRN (14:30)
[2024-08-13] MEDS ORDERED: HYDROGEN PEROXIDE 3% ONE (16:24)
[2024-08-13] MEDS ORDERED: BACTROBAN TOPICAL OINT ONE (16:25)
--- NOTE | 2024-08-13 20:56 | DR.H&P ---
H&P History & Physical for Day of: H&P Date: 08/12/24 Chief Complaint Chief Complaint: Left foot diabetic ulcer Skin infection History of Present Illness History of Present Illness: Patient is a 53-year-old male with a past medical history of hypertension, type 2 diabetes mellitus, hyperlipidemia, presenting with left foot diabetic wound drainage. He also reports redness of the skin on his left foot. He denies fevers, chills. Patient reports that he was seen at the ED and discharged. Patient was seen in clinic and was directly admitted to [facility] after noting significant wound discharge. Labs/imaging: WBC 16.9, hemoglobin 14.3, platelets 228, sodium 137, potassium 3.2, creatinine 1.10, glucose 211, A1c 10.2, CRP 105, wound culture pending, x-ray of the foot was ordered and is pending. Patient was started on IV antibiotics vancomycin. Will restart home medications. At this time we will follow-up with results from labs and imaging. Continue closely monitor and follow-up. Past Medical History Past Medical History: Diabetes and Hypertension Past Surgical History Surgical History: Cholecystectomy Family History Family Medical History: Diabetes Mellitus, Cancer, Coronary Artery Disease, Heart Failure and Hypertension Social History Does patient currently use any type of tobacco product: No Does any household member use tobacco: No Alcohol Use: None Drug Use: None Allergies Allergies Allergy/AdvReac Type Severity Reaction Status Date / Time codeine Allergy Verified 01/21/24 11:07 Labs 08/13/24 05:12 08/13/24 05:12 Labs: 08/12/24 18:00 Foot - Left Wound Gram Stain - Final Laboratory WBC 16.9 X10^3/uL (3.6-10.0) H 08/12/24 17:50 RBC 4.47 X10^6/uL (4.7-6.0) L 08/12/24 17:50 Hgb 14.3 g/dL (13.5-18.0) 08/12/24 17:50 Hct 40.4 % (42.0-54.0) L 08/12/24 17:50 MCV 90.4 fL (80.0-100.0) 08/12/24 17:50 MCH 31.9 pg (27.0-34.0) 08/12/24 17:50 MCHC 35.3 g/dL (33.0-35.0) H 08/12/24 17:50 RDW 13.2 % (11.6-16.5) 08/12/24 17:50 Plt Count 228 X10^3/uL (150.0-450.0) 08/12/24 17:50 MPV 9.6 fL (7.4-11.0) 08/12/24 17:50 Neut % (Auto) 80.8 % (42.0-75.0) H 08/12/24 17:50 Lymph % (Auto) 10.4 % (21.0-51.0) L 08/12/24 17:50 [place] % (Auto) 7.2 % (0.0-13.0) 08/12/24 17:50 Eos % (Auto) 1.1 % (0.9-2.9) 08/12/24 17:50 Baso % (Auto) 0.5 % (0.2-1.0) 08/12/24 17:50 Neut # (Auto) 13.7 x10^3/uL (2.2-4.8) H 08/12/24 17:50 Lymph # (Auto) 1.8 X10^3/uL (1.3-2.9) 08/12/24 17:50 [place] # (Auto) 1.2 x10^3/uL (0.3-0.8) H 08/12/24 17:50 Eos # (Auto) 0.2 x10^3/uL (0.0-0.2) 08/12/24 17:50 Baso # (Auto) 0.1 X10^3/uL (0.0-0.1) 08/12/24 17:50 Absolute Nucleated RBC 0.0 /100WBC 08/12/24 17:50 Sodium 137 mmol/L (136-145) 08/12/24 17:50 Corrected Sodium 140 mmol/L (136-145) 08/12/24 17:50 Potassium 3.2 mmol/L (3.5-5.1) L 08/12/24 17:50 Chloride 97 mmol/L (98-107) L 08/12/24 17:50 Carbon Dioxide 30.1 mmol/L (21-32) 08/12/24 17:50 BUN 11 mg/dL (7-18) 08/12/24 17:50 Creatinine 1.10 mg/dL (0.70-1.30) 08/12/24 17:50 Est GFR (MDRD) Af Amer > 60 (>60) 08/12/24 17:50 Est GFR (MDRD) Non-Af > 60 (>60) 08/12/24 17:50 Glucose 211 mg/dL (65-99) H 08/12/24 17:50 Calcium 9.2 mg/dL (8.5-10.1) 08/12/24 17:50 Corrected Calcium 9.8 mg/dL (8.5-10.1) 08/12/24 17:50 Total Bilirubin 0.60 mg/dL (0.2-1.0) 08/12/24 17:50 AST 15 Units/L (15-37) 08/12/24 17:50 ALT 17 Units/L (12-78) 08/12/24 17:50 Alkaline Phosphatase 117 Units/L (46-116) H 08/12/24 17:50 C-Reactive Protein 105.90 mg/L (0-3.0) H 08/12/24 17:50 Total Protein 8.9 g/dL (6.4-8.2) H 08/12/24 17:50 Albumin 3.2 g/dL (3.4-5.0) L 08/12/24 17:50 Globulin 5.7 g/dL (2.5-4.5) H 08/12/24 17:50 Albumin/Globulin Ratio 0.6 Ratio (1.1-2.1) L 08/12/24 17:50 Review of Systems Constitutional: No Symptoms Reported Eyes: No Symptoms Reported ENT: No Symptoms Reported Respiratory: No Symptoms Reported Cardiovascular: No Symptoms Reported Gastrointestinal: No Symptoms Reported Genitourinary: No Symptoms Reported Musculoskeletal: No Symptoms Reported Skin: Wound (left foot purulent discharge, erythema of skin) Neurological: No Symptoms Reported Physical Exam Vital Signs: Vital Signs Temperature 98.7 F Temperature 97.6 F Pulse Rate [Left Brachial] 88 Pulse Rate [Left Brachial] 100 Respiratory Rate 19 Respiratory Rate 20 Blood Pressure [Left Arm] 122/67 Blood Pressure [Left Arm] 163/86 Blood Pressure 137/88 O2 Sat by Pulse Oximetry 96 O2 Sat by Pulse Oximetry 98 Oriented: Normal Eyes: Normal Ear: Normal Nose: Normal Throat: Normal Respiratory: Clear Throughout Cardiovascular: Normal : Normal Auscultation: Bowel Sounds: Normal Palpation: Normal Tenderness: Normal Skin: Normal Musculoskeletal: Foot (left foot purulent discharge and erythema of skin) Psychiatric: Normal Mood Description: Calm and Appropriate Affect: Normal Speech Pattern: Clear and Appropriate Assessment/Plan (1) Cellulitis: Qualifiers: Site of cellulitis: other site Qualified Code(s): L03.818 - Cellulitis of other sites Status: Acute (2) Primary hypertension: Status: None (3) Type 2 diabetes mellitus: Qualifiers: Diabetes mellitus english drawer insulin use: with english drawer use Diabetes mellitus complication status: with other specified complication Qualified Code(s): E11.69 - Type 2 diabetes mellitus with other specified complication; 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
--- NOTE | 2024-08-13 21:03 | PCM.PROG ---
Progress Note Progress Note for Day of Date of Exam: 08/13/24 Subjective Subjective: Patient is a 53-year-old male with a past medical history of hypertension, type 2 diabetes mellitus, hyperlipidemia, admitted with left foot diabetic wound and cellulitis. This morning he is resting comfortably in bed. No acute events overnight. Erythema appears to be slightly improved compared to yesterday. Labs/imaging: WBC 13.7, hemoglobin 12.5, platelets 204, sodium 140, potassium 3.3, creatinine 0.93, glucose 85, CRP 78, wound culture pending, x-ray of the foot was ordered and we are still waiting pending results from radiology. Patient is currently on IV antibiotics vancomycin, will add Zosyn. Home medications have been resumed. Will consult general surgery for further e valuation. After monitoring sliding scale insulin compared to home insulin dose, it appears that patient is inconsistent with taking his insulin. Will restart Tresiba at a significantly reduced dose of 10 units daily and monitor his fingerstick blood glucose. Hypokalemia, replete per protocol. Otherwise continue with current treatment plan. Continue closely monitor and follow-up labs/imaging. Past Medical Family Social History Allergies: Allergies codeine Allergy (Verified 01/21/24 11:07) Review of Systems ROS changes noted: see HPI Vital Signs and I&O's Vital Signs: Vital Signs Temperature 98.2 F Temperature 97.9 F Pulse Rate [Left Brachial] 84 Pulse Rate [Left Brachial] 89 Respiratory Rate 18 Respiratory Rate 20 Blood Pressure [Left Arm] 142/86 Blood Pressure [Left Arm] 136/83 O2 Sat by Pulse Oximetry 96 O2 Sat by Pulse Oximetry 97 Intake and Output: Intake & Output 08/10/24 08/11/24 08/12/24 08/13/24 23:59 23:59 23:59 23:59 Intake Total 225 / 225 1732 / 1732 Balance 225 / 225 1732 / 1732 Physical Exam Oriented: Normal Eyes: Normal Ear: Normal Nose: Normal Throat: Normal Respiratory: Normal Cardiovascular: Normal : Normal Auscultation: Bowel Sounds: Normal Tenderness: Normal Skin: Normal Musculoskeletal: Foot (left foot purulent discharge and erythema of skin) Psychiatric: Normal Mood Description: Calm and Appropriate Affect: Normal Speech Pattern: Clear and Appropriate Laboratory and Diagnostics 08/13/24 05:12 08/13/24 05:12 Labs: 08/12/24 18:00 Foot - Left Wound Gram Stain - Final 08/12/24 18:00 Foot - Left Wound Culture - Preliminary Laboratory WBC 13.7 X10^3/uL (3.6-10.0) H 08/13/24 05:12 RBC 3.92 X10^6/uL (4.7-6.0) L 08/13/24 05:12 Hgb 12.5 g/dL (13.5-18.0) L 08/13/24 05:12 Hct 35.4 % (42.0-54.0) L 08/13/24 05:12 MCV 90.2 fL (80.0-100.0) 08/13/24 05:12 MCH 31.8 pg (27.0-34.0) 08/13/24 05:12 MCHC 35.3 g/dL (33.0-35.0) H 08/13/24 05:12 RDW 13.3 % (11.6-16.5) 08/13/24 05:12 Plt Count 204 X10^3/uL (150.0-450.0) 08/13/24 05:12 MPV 9.2 fL (7.4-11.0) 08/13/24 05:12 Neut % (Auto) 76.3 % (42.0-75.0) H 08/13/24 05:12 Lymph % (Auto) 14.5 % (21.0-51.0) L 08/13/24 05:12 [place] % (Auto) 7.9 % (0.0-13.0) 08/13/24 05:12 Eos % (Auto) 0.7 % (0.9-2.9) L 08/13/24 05:12 Baso % (Auto) 0.6 % (0.2-1.0) 08/13/24 05:12 Neut # (Auto) 10.5 x10^3/uL (2.2-4.8) H 08/13/24 05:12 Lymph # (Auto) 2.0 X10^3/uL (1.3-2.9) 08/13/24 05:12 [place] # (Auto) 1.1 x10^3/uL (0.3-0.8) H 08/13/24 05:12 Eos # (Auto) 0.1 x10^3/uL (0.0-0.2) 08/13/24 05:12 Baso # (Auto) 0.1 X10^3/uL (0.0-0.1) 08/13/24 05:12 Absolute Nucleated RBC 0.1 /100WBC 08/13/24 05:12 Sodium 140 mmol/L (136-145) 08/13/24 05:12 Corrected Sodium TNP 08/13/24 05:12 Potassium 3.3 mmol/L (3.5-5.1) L 08/13/24 05:12 Chloride 101 mmol/L (98-107) 08/13/24 05:12 Carbon Dioxide 30.5 mmol/L (21-32) 08/13/24 05:12 BUN 11 mg/dL (7-18) 08/13/24 05:12 Creatinine 0.93 mg/dL (0.70-1.30) 08/13/24 05:12 Est GFR (MDRD) Af Amer > 60 (>60) 08/13/24 05:12 Est GFR (MDRD) Non-Af > 60 (>60) 08/13/24 05:12 Glucose 85 mg/dL (65-99) 08/13/24 05:12 POC Glucose (mg/dL) 87 mg/dL (65-99) 08/13/24 16:39 Hemoglobin A1c 10.2 % 08/13/24 05:12 Lactic Acid 1.4 mmol/L (0.4-2.0) 08/13/24 10:20 Calcium 8.9 mg/dL (8.5-10.1) 08/13/24 05:12 Corrected Calcium 10.0 mg/dL (8.5-10.1) 08/13/24 05:12 Magnesium 1.8 mg/dL (2.0-2.9) L 08/13/24 05:12 Total Bilirubin 0.60 mg/dL (0.2-1.0) 08/13/24 05:12 AST 17 Units/L (15-37) 08/13/24 05:12 ALT 17 Units/L (12-78) 08/13/24 05:12 Alkaline Phosphatase 94 Units/L (46-116) 08/13/24 05:12 C-Reactive Protein 78.90 mg/L (0-3.0) H 08/13/24 05:12 Total Protein 7.5 g/dL (6.4-8.2) 08/13/24 05:12 Albumin 2.6 g/dL (3.4-5.0) L 08/13/24 05:12 Globulin 4.9 g/dL (2.5-4.5) H 08/13/24 05:12 Albumin/Globulin Ratio 0.5 Ratio (1.1-2.1) L 08/13/24 05:12 Plan (1) Cellulitis: Status: Acute Qualifiers: Site of cellulitis: other site Qualified Code(s): L03.818 - Cellulitis of other sites (2) Primary hypertension: Status: None (3) Type 2 diabetes mellitus: Status: None Qualifiers: Diabetes mellitus terminal carman insulin use: with terminal carman use Diabetes mellitus complication status: with other specified complication Qualified Code(s): E11.69 - Type 2 diabetes mellitus with other specified complication; Z79.4 - predatory animal exterminator (current) use of insulin (4) Wound of right foot: Status: None (5) Insomnia: Status: Acute Qualifiers: Insomnia type: primary Qualified Code(s): F51.01 - Primary insomnia (6) Mixed hyperlipidemia: Status: Acute (7) Diabetic neuropathy: Status: Acute Qualifiers: Diabetes mellitus type: type 2 Diabetes mellitus complication detail: with other neurological complication Qualified Code(s): E11.49 - Type 2 diabetes mellitus with other diabetic neurological complication (8) Hypokalemia: Status: Acute
[2024-08-14] MEDS: NS IRRIGATION* 500 ML IR ONE (00:17)
[2024-08-14] MEDS: NS 250 ML IV 250 ML IV ONE ×2 (03:32→19:20)
[2024-08-14 06:35] LABS: BASOPHILS # (AUTO) 0.1 X10^3/uL (0.0-0.1); BASOPHILS % (AUTO) 0.8 % (0.2-1.0); EOSINOPHILS # (AUTO) 0.2 x10^3/uL (0.0-0.2); EOSINOPHILS % (AUTO) 1.4 % (0.9-2.9); HEMATOCRIT 37.1 % (42.0-54.0); HEMOGLOBIN 12.9 g/dL (13.5-18.0); LYMPHOCYTES # (AUTO) 1.6 X10^3/uL (1.3-2.9); LYMPHOCYTES % (AUTO) 12.5 % (21.0-51.0); MEAN CORPUSCULAR HEMOGLOBIN 31.7 pg (27.0-34.0); MEAN CORPUSCULAR HGB CONC 34.7 g/dL (33.0-35.0); MEAN CORPUSCULAR VOLUME 91.5 fL (80.0-100.0); MEAN PLATELET VOLUME 9.8 fL (7.4-11.0); MONOCYTES # (AUTO) 1.1 x10^3/uL (0.3-0.8); MONOCYTES % (AUTO) 8.4 % (0.0-13.0); NEUTROPHILS # (AUTO) 9.7 x10^3/uL (2.2-4.8); NEUTROPHILS % (AUTO) 76.9 % (42.0-75.0); PLATELET COUNT 222 X10^3/uL (150.0-450.0); RED BLOOD COUNT 4.06 X10^6/uL (4.7-6.0); RED CELL DISTRIBUTION WIDTH 13.2 % (11.6-16.5); WHITE BLOOD COUNT 12.6 X10^3/uL (3.6-10.0)
--- NOTE | 2024-08-14 06:40 | RAD ---
EXAM:Left foot three viewsHISTORY:CellulitisCOMPARISON:None br.br.br.br the foot.There is no evidence for fracture, septic joint, osteomyelitis or other acute osseous abnormality.IMPRESSION:Marked soft tissue swelling left foot.THIS IS AN ELECTRONICALLY VERIFIED FINAL [id number]/2024 6:36 AM - Electronically signed by Delvin Bai MD
[2024-08-14 06:54] LABS: ALANINE AMINOTRANSFERASE 28 Units/L (12-78); ALBUMIN 2.4 g/dL (3.4-5.0); ALKALINE PHOSPHATASE 107 Units/L (46-116); ASPARTATE AMINO TRANSFERASE 26 Units/L (15-37); BLOOD UREA NITROGEN 10 mg/dL (7-18); CALCIUM 8.7 mg/dL (8.5-10.1); CARBON DIOXIDE 26.4 mmol/L (21-32); CHLORIDE 105 mmol/L (98-107); CREATININE 1.04 mg/dL (0.70-1.30); GLUCOSE 89 mg/dL (65-99); MAGNESIUM 1.9 mg/dL (2.0-2.9); POTASSIUM 3.5 mmol/L (3.5-5.1); SODIUM 141 mmol/L (136-145); TOTAL PROTEIN 7.5 g/dL (6.4-8.2); eGFR NON BLACK RACES > 60 (>60)
[2024-08-14] MEDS ORDERED: CONSULT PHARMACY - POTASSIUM & MAGNESIUM XX SCH (07:00)
--- NOTE | 2024-08-14 08:26 | MRI ---
EXAM:MRI left foot without contrastHISTORY:Osteomyelitis of left footCOMPARISON:Left foot series from 08/12/2024.TECHNIQUE:Multiplanar multisequence noncontrast MRI of the left foot was performed.FINDINGS:Bones: No abnormalities of bone marrow signal. No acute fracture.Soft tissues: Mild edema. No soft tissue defect or fluid collection.IMPRESSION:Mild edema of left foot without evidence of osteomyelitis.THIS IS AN ELECTRONICALLY VERIFIED FINAL [id number]/2024 8:22 AM - Electronically signed by Jonah Lazo MD
[2024-08-14] MEDS ORDERED: PHARMACY COMMENT IV SCH (08:30)
[2024-08-14] MEDS: K-DUR TAB 20 MEQ PO SCH (08:39)
[2024-08-14] MEDS: DIFLUCAN PO SCH (09:31)
[2024-08-14] MEDS: MAG-OX TAB PO SCH (09:31)
[2024-08-14] MEDS: TRESIBA U-100 INSULIN SC SCH (12:31)
[2024-08-15] MEDS: NS 250 ML IV 250 ML IV ONE ×2 (06:08→15:22)
[2024-08-15 06:21] LABS: BASOPHILS # (AUTO) 0.1 X10^3/uL (0.0-0.1); BASOPHILS % (AUTO) 0.9 % (0.2-1.0); EOSINOPHILS # (AUTO) 0.2 x10^3/uL (0.0-0.2); EOSINOPHILS % (AUTO) 1.4 % (0.9-2.9); HEMATOCRIT 37.8 % (42.0-54.0); HEMOGLOBIN 13.1 g/dL (13.5-18.0); LYMPHOCYTES # (AUTO) 2.1 X10^3/uL (1.3-2.9); LYMPHOCYTES % (AUTO) 15.3 % (21.0-51.0); MEAN CORPUSCULAR HEMOGLOBIN 31.5 pg (27.0-34.0); MEAN CORPUSCULAR HGB CONC 34.6 g/dL (33.0-35.0); MEAN PLATELET VOLUME 9.6 fL (7.4-11.0); MONOCYTES # (AUTO) 1.2 x10^3/uL (0.3-0.8); MONOCYTES % (AUTO) 8.5 % (0.0-13.0); NEUTROPHILS # (AUTO) 10.3 x10^3/uL (2.2-4.8); NEUTROPHILS % (AUTO) 73.9 % (42.0-75.0); PLATELET COUNT 258 X10^3/uL (150.0-450.0); RED BLOOD COUNT 4.15 X10^6/uL (4.7-6.0); RED CELL DISTRIBUTION WIDTH 13.3 % (11.6-16.5); WHITE BLOOD COUNT 13.9 X10^3/uL (3.6-10.0)
[2024-08-15 06:43] LABS: ALANINE AMINOTRANSFERASE 29 Units/L (12-78); ALBUMIN 2.3 g/dL (3.4-5.0); ALKALINE PHOSPHATASE 95 Units/L (46-116); ASPARTATE AMINO TRANSFERASE 21 Units/L (15-37); BLOOD UREA NITROGEN 8 mg/dL (7-18); CALCIUM 8.7 mg/dL (8.5-10.1); CARBON DIOXIDE 27.3 mmol/L (21-32); CHLORIDE 107 mmol/L (98-107); COR CA(FOR HYPOALB) 10.1 mg/dL (8.5-10.1); CREATININE 0.97 mg/dL (0.70-1.30); GLUCOSE 69 mg/dL (65-99); MAGNESIUM 2.2 mg/dL (2.0-2.9); POTASSIUM 3.8 mmol/L (3.5-5.1); SODIUM 141 mmol/L (136-145); TOTAL PROTEIN 7.7 g/dL (6.4-8.2); eGFR NON BLACK RACES > 60 (>60)
[2024-08-15] MEDS ORDERED: CONSULT PHARMACY - POTASSIUM & MAGNESIUM XX SCH (08:00)
[2024-08-15] MEDS: K-DUR TAB 20 MEQ PO SCH (08:38)
--- NOTE | 2024-08-15 11:11 | DR.PROGNOT ---
HOSPITAL PROGRESS NOTE Progress Note for Day of: Progress Note Date: 08/15/24 Chief Complaint Chief Complaint: Patient is feeling better today, denies significant pain of the left foot, MRI showed no evidence of osteomyelitis. White count 13.9, blood sugar 153, BUN/creatinine are normal Past Medical Family Social History Allergies: Allergies codeine Allergy (Verified 01/21/24 11:07) Review Of Systems ROS: No change since H&P Changes in ROS: see HPI Vital Signs Vital Signs: Vital Signs Temperature 96.4 F Temperature 98.2 F Pulse Rate [Left Brachial] 83 Pulse Rate [Left Brachial] 71 Respiratory Rate 20 Respiratory Rate 20 Blood Pressure [Left Arm] 136/64 Blood Pressure [Left Arm] 105/61 O2 Sat by Pulse Oximetry 97 O2 Sat by Pulse Oximetry 98 Physical Exam Oriented: Normal Eyes: Normal Ear: Normal Nose: Normal Throat: Normal Respiratory: Normal Cardiovascular: Normal : Normal GI:Auscultation: Normal GI:Palpation: Normal GI: Tenderness: Normal Skin: Normal Musculoskeletal: Foot (Still having cellulitis on the dorsal aspect of the left foot involving second third and fourth toes with mild drainage, no clear abscess formation and no necrosis.) Psychiatric: Normal Mood Description: Calm and Appropriate Affect: Normal Speech Pattern: Clear and Appropriate Laboratory and Diagnostics 08/15/24 05:20 08/15/24 05:20 Labs: 08/12/24 18:00 Foot - Left Wound Gram Stain - Final 08/12/24 18:00 Foot - Left Wound Culture - Preliminary Methicillin Resis Staph Aureus Laboratory WBC 13.9 X10^3/uL (3.6-10.0) H 08/15/24 05:20 RBC 4.15 X10^6/uL (4.7-6.0) L 08/15/24 05:20 Hgb 13.1 g/dL (13.5-18.0) L 08/15/24 05:20 Hct 37.8 % (42.0-54.0) L 08/15/24 05:20 MCV 91.0 fL (80.0-100.0) 08/15/24 05:20 MCH 31.5 pg (27.0-34.0) 08/15/24 05:20 MCHC 34.6 g/dL (33.0-35.0) 08/15/24 05:20 RDW 13.3 % (11.6-16.5) 08/15/24 05:20 Plt Count 258 X10^3/uL (150.0-450.0) 08/15/24 05:20 MPV 9.6 fL (7.4-11.0) 08/15/24 05:20 Neut % (Auto) 73.9 % (42.0-75.0) 08/15/24 05:20 Lymph % (Auto) 15.3 % (21.0-51.0) L 08/15/24 05:20 [place] % (Auto) 8.5 % (0.0-13.0) 08/15/24 05:20 Eos % (Auto) 1.4 % (0.9-2.9) 08/15/24 05:20 Baso % (Auto) 0.9 % (0.2-1.0) 08/15/24 05:20 Neut # (Auto) 10.3 x10^3/uL (2.2-4.8) H 08/15/24 05:20 Lymph # (Auto) 2.1 X10^3/uL (1.3-2.9) 08/15/24 05:20 [place] # (Auto) 1.2 x10^3/uL (0.3-0.8) H 08/15/24 05:20 Eos # (Auto) 0.2 x10^3/uL (0.0-0.2) 08/15/24 05:20 Baso # (Auto) 0.1 X10^3/uL (0.0-0.1) 08/15/24 05:20 Absolute Nucleated RBC 0.1 /100WBC 08/15/24 05:20 Sodium 141 mmol/L (136-145) 08/15/24 05:20 Corrected Sodium TNP 08/15/24 05:20 Potassium 3.8 mmol/L (3.5-5.1) 08/15/24 05:20 Chloride 107 mmol/L (98-107) 08/15/24 05:20 Carbon Dioxide 27.3 mmol/L (21-32) 08/15/24 05:20 BUN 8 mg/dL (7-18) 08/15/24 05:20 Creatinine 0.97 mg/dL (0.70-1.30) 08/15/24 05:20 Est GFR (MDRD) Af Amer > 60 (>60) 08/15/24 05:20 Est GFR (MDRD) Non-Af > 60 (>60) 08/15/24 05:20 Glucose 69 mg/dL (65-99) 08/15/24 05:20 POC Glucose (mg/dL) 153 mg/dL (65-99) H 08/14/24 16:32 Hemoglobin A1c 10.2 % 08/13/24 05:12 Lactic Acid 1.4 mmol/L (0.4-2.0) 08/13/24 10:20 Calcium 8.7 mg/dL (8.5-10.1) 08/15/24 05:20 Corrected Calcium 10.1 mg/dL (8.5-10.1) 08/15/24 05:20 Magnesium 2.2 mg/dL (2.0-2.9) 08/15/24 05:20 Total Bilirubin 0.40 mg/dL (0.2-1.0) 08/15/24 05:20 AST 21 Units/L (15-37) 08/15/24 05:20 ALT 29 Units/L (12-78) 08/15/24 05:20 Alkaline Phosphatase 95 Units/L (46-116) 08/15/24 05:20 C-Reactive Protein 78.90 mg/L (0-3.0) H 08/13/24 05:12 Total Protein 7.7 g/dL (6.4-8.2) 08/15/24 05:20 Albumin 2.3 g/dL (3.4-5.0) L 08/15/24 05:20 Globulin 5.4 g/dL (2.5-4.5) H 08/15/24 05:20 Albumin/Globulin Ratio 0.4 Ratio (1.1-2.1) L 08/15/24 05:20 Random Vancomycin 6.9 ug/mL 08/14/24 09:10 Assessment and Plan 1: Cellulitis of the left foot with diabetic ulcers, diabetic neuropathy. On IV antibiotics pending final culture report.
[2024-08-15] MEDS: VANCOMYCIN IV *PREMIX 1 G/200 ML BAG 1 G/200 ML PIGGYBACK IV SCH (15:22)
[2024-08-15] MEDS: NORCO 10/325 TAB PO PRN (15:46)
[2024-08-15] MEDS: STERILE WATER IRRIGATION IR ONE (22:15)
[2024-08-16 06:01] LABS: BASOPHILS # (AUTO) 0.1 X10^3/uL (0.0-0.1); BASOPHILS % (AUTO) 0.9 % (0.2-1.0); EOSINOPHILS # (AUTO) 0.3 x10^3/uL (0.0-0.2); EOSINOPHILS % (AUTO) 2.2 % (0.9-2.9); HEMATOCRIT 35.9 % (42.0-54.0); HEMOGLOBIN 12.3 g/dL (13.5-18.0); LYMPHOCYTES # (AUTO) 2.3 X10^3/uL (1.3-2.9); LYMPHOCYTES % (AUTO) 19.6 % (21.0-51.0); MEAN CORPUSCULAR HEMOGLOBIN 31.6 pg (27.0-34.0); MEAN CORPUSCULAR HGB CONC 34.4 g/dL (33.0-35.0); MEAN CORPUSCULAR VOLUME 91.9 fL (80.0-100.0); MEAN PLATELET VOLUME 9.3 fL (7.4-11.0); MONOCYTES # (AUTO) 1.1 x10^3/uL (0.3-0.8); MONOCYTES % (AUTO) 9.8 % (0.0-13.0); NEUTROPHILS # (AUTO) 7.8 x10^3/uL (2.2-4.8); NEUTROPHILS % (AUTO) 67.5 % (42.0-75.0); PLATELET COUNT 252 X10^3/uL (150.0-450.0); RED CELL DISTRIBUTION WIDTH 13.4 % (11.6-16.5); WHITE BLOOD COUNT 11.5 X10^3/uL (3.6-10.0)
[2024-08-16 06:11] LABS: VANCOMYCIN,TROUGH 19.4 ug/mL (15-20)
[2024-08-16] MEDS: PHARMACY COMMENT IV ONE (06:16)
[2024-08-16 06:19] LABS: ALANINE AMINOTRANSFERASE 25 Units/L (12-78); ALBUMIN 2.4 g/dL (3.4-5.0); ALKALINE PHOSPHATASE 90 Units/L (46-116); ASPARTATE AMINO TRANSFERASE 18 Units/L (15-37); BLOOD UREA NITROGEN 11 mg/dL (7-18); CALCIUM 9.1 mg/dL (8.5-10.1); CARBON DIOXIDE 26.9 mmol/L (21-32); CHLORIDE 103 mmol/L (98-107); COR CA(FOR HYPOALB) 10.4 mg/dL (8.5-10.1); CREATININE 1.07 mg/dL (0.70-1.30); GLUCOSE 90 mg/dL (65-99); POTASSIUM 4.2 mmol/L (3.5-5.1); SODIUM 138 mmol/L (136-145); TOTAL PROTEIN 7.7 g/dL (6.4-8.2); eGFR NON BLACK RACES > 60 (>60)
[2024-08-16] MEDS: VANCOMYCIN HCL ONE (06:27)
[2024-08-16] MEDS: NS 250 ML IV 250 ML IV ONE (06:28)
[2024-08-16] MEDS: ULTRAM PO PRN (08:36)
[2024-08-16] MEDS: NORCO 10/325 TAB PO PRN (15:13)
[2024-08-16] MEDS: NS IRRIGATION* 1,000 ML IR PRN (16:12)
[2024-08-16] MEDS: VANCOMYCIN IV *PREMIX 1.25 G/250 ML BAG 1.25 G/250 ML PIGGYBACK IV SCH (21:24)
[2024-08-17 05:37] LABS: BASOPHILS # (AUTO) 0.3 X10^3/uL (0.0-0.1); BASOPHILS % (AUTO) 2.7 % (0.2-1.0); EOSINOPHILS # (AUTO) 0.2 x10^3/uL (0.0-0.2); EOSINOPHILS % (AUTO) 1.8 % (0.9-2.9); HEMATOCRIT 36.8 % (42.0-54.0); HEMOGLOBIN 12.8 g/dL (13.5-18.0); LYMPHOCYTES # (AUTO) 1.8 X10^3/uL (1.3-2.9); LYMPHOCYTES % (AUTO) 18.7 % (21.0-51.0); MEAN CORPUSCULAR HEMOGLOBIN 31.7 pg (27.0-34.0); MEAN CORPUSCULAR HGB CONC 34.8 g/dL (33.0-35.0); MEAN CORPUSCULAR VOLUME 91.1 fL (80.0-100.0); MEAN PLATELET VOLUME 9.1 fL (7.4-11.0); MONOCYTES # (AUTO) 0.8 x10^3/uL (0.3-0.8); MONOCYTES % (AUTO) 8.3 % (0.0-13.0); NEUTROPHILS # (AUTO) 6.7 x10^3/uL (2.2-4.8); NEUTROPHILS % (AUTO) 68.5 % (42.0-75.0); PLATELET COUNT 272 X10^3/uL (150.0-450.0); RED BLOOD COUNT 4.05 X10^6/uL (4.7-6.0); RED CELL DISTRIBUTION WIDTH 13.1 % (11.6-16.5); WHITE BLOOD COUNT 9.8 X10^3/uL (3.6-10.0)
[2024-08-17 05:53] LABS: ALANINE AMINOTRANSFERASE 24 Units/L (12-78); ALBUMIN 2.5 g/dL (3.4-5.0); ALKALINE PHOSPHATASE 83 Units/L (46-116); ASPARTATE AMINO TRANSFERASE 13 Units/L (15-37); BLOOD UREA NITROGEN 11 mg/dL (7-18); CHLORIDE 105 mmol/L (98-107); COR CA(FOR HYPOALB) 10.2 mg/dL (8.5-10.1); COR NA(FOR HYPERGLY) 140 mmol/L (136-145); CREATININE 1.03 mg/dL (0.70-1.30); GLUCOSE 112 mg/dL (65-99); POTASSIUM 4.2 mmol/L (3.5-5.1); SODIUM 140 mmol/L (136-145); TOTAL PROTEIN 7.8 g/dL (6.4-8.2); eGFR NON BLACK RACES > 60 (>60)
[2024-08-17 08:20] VITALS: BP 126/70; PULSE 73; TEMP 97.8; O2SAT 97
[2024-08-17 11:04] VITALS: RESP 18
[2024-08-18] MEDS ORDERED: PHARMACY COMMENT IV NR (08:00)
== END 2024-08-17 10:20 | disposition home or self-care (01) ==
LOC: MED/SURG
PROVIDERS: ADMIT Family Medicine; ATTEND Family Medicine
DX: E78.2 Mixed hyperlipidemia; S91.302A Unspecified open wound, left foot, initial encounter; Z16.29 Resistance to other single specified antibiotic; I10 Essential (primary) hypertension; L03.116 Cellulitis of left lower limb; B95.62 Methicillin resistant Staphylococcus aureus infection as the cause of diseases classified elsewhere; R79.82 Elevated C-reactive protein (CRP); E83.42 Hypomagnesemia; Z79.4 Long term (current) use of insulin; Z16.12 Extended spectrum beta lactamase (ESBL) resistance; E87.6 Hypokalemia; F51.01 Primary insomnia; E11.49 Type 2 diabetes mellitus with other diabetic neurological complication; Z16.23 Resistance to quinolones and fluoroquinolones; E11.65 Type 2 diabetes mellitus with hyperglycemia